=== PATIENT | male | born 1980 | race Caucasian/White ===

== ENCOUNTER 2019-09-10 16:59 | Outpatient (REF) | payer BC, SELFPAY ==
[2019-09-10 17:03] LABS: ALT 44 U/L (16-63); AST 25 U/L (15-37); Albumin 4.3 g/dL (3.4-5.0); Alkaline Phosphatase 88 U/L (46-116); Bilirubin, Direct 0.12 mg/dL (0.00-0.20); Bilirubin, Total 0.5 mg/dL (0.2-1.0); Ferritin 110 ng/mL (26-388); Total Protein 7.4 g/dL (6.4-8.2)
[2019-09-13 10:54] LABS: Hepatitis C Ab w Rflx HCV PCR Negative (Negative)
== END 2019-09-10 17:19 ==
LOC: NCHCN 16:59
PROVIDERS: PCP Family Medicine; Visit Provider Family Medicine
DX: R74.0 Nonspecific elevation of levels of transaminase and lactic acid dehydrogenase [LDH] (principal); Z11.59 Encounter for screening for other viral diseases
CPT/HCPCS: 80076; 86803; 82728

== ENCOUNTER 2020-10-04 20:17 | Outpatient (REF) | payer BC, SELFPAY ==
[2020-10-04 20:49] LABS: ALT 88 U/L (16-63); AST 42 U/L (15-37); Albumin 4.6 g/dL (3.4-5.0); Alkaline Phosphatase 90 U/L (46-116); Anion Gap 10.2 mmol/L (3-11); BUN 16 mg/dL (7-18); Bilirubin, Total 0.4 mg/dL (0.2-1.0); CO2 26.8 mmol/L (21.0-32.0); CREATININE 0.9 mg/dL (0.70-1.30); Calcium 9.4 mg/dL (8.5-10.1); Calculated LDL 172 mg/dL (<100); Chloride 103 mmol/L (98-107); Cholesterol 278 mg/dL (<200); Glucose 87 mg/dL (74-106); HDL Cholesterol 63 mg/dL (40-60); Potassium 4.2 mmol/L (3.5-5.1); Sodium 140 mmol/L (136-145); Total Protein 7.8 g/dL (6.4-8.2); Triglyceride 215 mg/dL (<150)
[2020-10-04 20:52] LABS: Hemoglobin A1C 5.1 % (<5.7)
[2020-10-06 09:00] LABS: Hepatitis B Surface Ag Negative (Negative)
== END 2020-10-04 20:18 | disposition home or self-care (01) ==
LOC: NCHCN 20:17
PROVIDERS: PCP Family Medicine; Visit Provider Family Medicine
DX: Z00.00 Encounter for general adult medical examination without abnormal findings (principal); M25.561 Pain in right knee; I10 Essential (primary) hypertension; R74.01 Elevation of levels of liver transaminase levels
CPT/HCPCS: 80053; 80061; 87340; 83036

== ENCOUNTER 2022-01-08 18:18 | Outpatient (REF) | payer BC, SELFPAY ==
[2022-01-08 18:46] LABS: ALT 51 U/L (16-63); AST 38 U/L (15-37); Albumin 4.6 g/dL (3.4-5.0); Alkaline Phosphatase 87 U/L (46-116); Anion Gap 10.8 mmol/L (3-11); BUN 17 mg/dL (7-18); Bilirubin, Total 0.5 mg/dL (0.2-1.0); CO2 27.2 mmol/L (21.0-32.0); CREATININE 0.9 mg/dL (0.70-1.30); Calcium 9.6 mg/dL (8.5-10.1); Calculated LDL 143 mg/dL (<100); Chloride 102 mmol/L (98-107); Cholesterol 231 mg/dL (<200); Estimated GFR 109.36 (mL/min/1.73m2); Glucose 88 mg/dL (74-106); HDL Cholesterol 66 mg/dL (40-60); Potassium 3.7 mmol/L (3.5-5.1); Sodium 140 mmol/L (136-145); Total Protein 8.6 g/dL (6.4-8.2); Triglyceride 112 mg/dL (<150)
== END 2022-01-08 18:19 | disposition home or self-care (01) ==
LOC: NCHCN 18:18
PROVIDERS: PCP Family Medicine; Visit Provider Nurse Practitioner Family
DX: E78.5 Hyperlipidemia, unspecified (principal)
CPT/HCPCS: 80053; 80061

== ENCOUNTER 2022-12-23 12:46 | Outpatient (REF) | payer BC, SELFPAY ==
[2022-12-23 15:57] LABS: ALT 62 U/L (16-63); AST 30 U/L (15-37); Alkaline Phosphatase 76 U/L (46-116); Anion Gap 8.6 mmol/L (3-11); BUN 16 mg/dL (7-18); Bilirubin, Total 0.3 mg/dL (0.2-1.0); CO2 27.4 mmol/L (21.0-32.0); Calcium 9.4 mg/dL (8.5-10.1); Calculated LDL 170 mg/dL (<100); Chloride 104 mmol/L (98-107); Cholesterol 263 mg/dL (<200); Estimated GFR 95.77 (mL/min/1.73m2); Glucose 101 mg/dL (74-106); HDL Cholesterol 60 mg/dL (40-60); Potassium 4.6 mmol/L (3.5-5.1); Sodium 140 mmol/L (136-145); Total Protein 7.7 g/dL (6.4-8.2); Triglyceride 166 mg/dL (<150)
== END 2022-12-23 12:47 | disposition home or self-care (01) ==
LOC: NCHCN 12:46
PROVIDERS: PCP Family Medicine; Visit Provider Nurse Practitioner Family
DX: E78.5 Hyperlipidemia, unspecified (principal); Z68.33 Body mass index [BMI] 33.0-33.9, adult
CPT/HCPCS: 80053; 80061

== ENCOUNTER 2024-01-21 12:14 | Outpatient (REF) | payer BC, SELFPAY ==
[2024-01-22 19:40] LABS: ALT 76 U/L (16-63); AST 38 U/L (15-37); Albumin 4.3 g/dL (3.4-5.0); Alkaline Phosphatase 88 U/L (46-116); Anion Gap 6.9 mmol/L (3-11); BUN 18 mg/dL (7-18); Bilirubin, Total 0.37 mg/dL (0.2-1.0); CO2 31.1 mmol/L (21.0-32.0); Calcium 9.6 mg/dL (8.5-10.1); Calculated LDL 156 mg/dL (<100); Chloride 104 mmol/L (98-107); Cholesterol 273 mg/dL (<200); Estimated GFR 95.18 (mL/min/1.73m2); Glucose 88 mg/dL (74-106); HDL Cholesterol 60 mg/dL (40-60); Potassium 4.5 mmol/L (3.5-5.1); Sodium 142 mmol/L (136-145); Triglyceride 286 mg/dL (<150)
== END 2024-01-21 12:15 | disposition home or self-care (01) ==
LOC: NCHCN 12:14
PROVIDERS: PCP Family Medicine; Visit Provider Nurse Practitioner Family
DX: E78.5 Hyperlipidemia, unspecified (principal); R53.83 Other fatigue
CPT/HCPCS: 80053; 80061; 85025

== ENCOUNTER 2024-03-02 10:36 | Outpatient (REF) | payer BC, SELFPAY ==
--- NOTE | 2024-03-02 10:30 | SKI_PTH ---
PATIENT: Hyacinth Marti LOC: [facility] U#:[id number] AGE/SX: 43/M ROOM: RE03/02/[address]: Doc Kolb MD : 1980 BED: DIS: 03/02/2024 SPEC #: [id number] RECD: 03/02/24 12:35 STATUS: [place] REQ #: [id number] ABBY: 03/02/24 10:[address]: Doc Kolb DEPT: Surgical Specimen RECD BY: Jodie Pastrana ENTERED: 03/02/24 12:35 SP TYPE: PAVAN BENNETT DR: Melanie Wu Tissues: 1 - SKIN BIOPSY(SHAVE/PUNCH) Procedures: GROSS AND MICRO LEVEL 3 Comments: [id number]
== END 2024-03-02 10:37 | disposition home or self-care (01) ==
LOC: LBN 10:36
PROVIDERS: PCP Nurse Practitioner Family; Referring Provider Surgery; Visit Provider Surgery
DX: D21.9 Benign neoplasm of connective and other soft tissue, unspecified (principal)
CPT/HCPCS: 88304; 88305